=== PATIENT | female | born 1970 | race African-American/Black ===

== ENCOUNTER 2016-06-01 10:10 | Emergency (ER) | payer BC, MEDICAID ==
--- NOTE | 2016-06-01 10:17 | ER Document Report ---
ED Medical Screen (RME) - General Stated Complaint: RIGHT ANKLE AND KNEE PAIN Notes: 46 yo female c/o right ankle and knee pain since yesterday. + prolonged standing yesterday. no trauma no chest pain or shortness of breath. + soft tissue swelling to right ankle - Related Data Allergies/Adverse Reactions: Penicillins Allergy (Verified 06/01/16 10:14)
--- NOTE | 2016-06-01 13:23 | ER Document Report ---
ED Extremity Problem, Lower - General Mode of Arrival: Ambulatory Information source: Patient TRAVEL OUTSIDE OF THE [place] IN LAST 30 DAYS: No - HPI Patient complains to provider of: Pain - right ankle, Swelling - right ankle Location: Ankle - right Occurred: Yesterday Context: Other - see above Associated symptoms: Other - see above - General Chief Complaint: Ankle Pain Stated Complaint: RIGHT ANKLE AND KNEE PAIN Notes: 46 year old female with history of right ankle fracture 1 year ago presents to the ED complaining of swelling and pain to the right ankle that started yesterday after standing for 7.5 hours while doing community service at the [employer]. Patient describes the pain as "throbbing". Patient is on disability secondary to the right ankle injury. Patient denies being on blood thinners or history of ulcers. (CARLEEN STEPHENSON) - Related Data Allergies/Adverse Reactions: Penicillins Allergy (Verified 06/01/16 10:14) Past Medical History - General Information source: Patient - Social History Smoking Status: Never Smoker Chew tobacco use (# tins/day): No Frequency of alcohol use: None Drug Abuse: None Family History: Reviewed & Not Pertinent Patient has suicidal ideation: No Patient has homicidal ideation: No Renal/ Medical History: Denies: Hx Peritoneal Dialysis Musculoskeltal Medical History: Reports Other - Right ankle fracture Review of Systems - Review of Systems Constitutional: No symptoms reported EENT: No symptoms reported Cardiovascular: No symptoms reported Respiratory: No symptoms reported Gastrointestinal: No symptoms reported Genitourinary: No symptoms reported Female Genitourinary: No symptoms reported Musculoskeletal: See HPI, Joint pain - right ankle pain, Ankle swelling - right ankle Skin: No symptoms reported Hematologic/Lymphatic: No symptoms reported Neurological/Psychological: No symptoms reported -: Yes All other systems reviewed and negative Physical Exam - General General appearance: Alert In distress: None - HEENT Head: Normocephalic, Atraumatic Eyes: Normal Extraocular movements intact: Yes Pupils: PERRL - Respiratory Respiratory status: No respiratory distress Breath sounds: Normal - Cardiovascular Rhythm: Regular Heart sounds: Normal auscultation - Abdominal Inspection: Normal Distension: No distension Tenderness: Nontender - Back Back: Normal - Extremities General upper extremity: Normal inspection, Normal ROM General lower extremity: Other - No proximal tib-fib, knee, or hip tenderness. Mild swelling to the right ankle with no bony deformity.. No: Normal inspection - Neurological Neuro grossly intact: Yes Cognition: Normal Orientation: AAOx4 [place] Coma Scale Eye Opening: Spontaneous [place] Coma Scale Verbal: Oriented [place] Coma Scale Motor: Obeys Commands [place] Coma Scale Total: 15 Speech: Normal - Psychological Associated symptoms: Normal affect, Normal mood - Skin Skin Temperature: Warm Skin Moisture: Dry Skin Color: Normal Discharge - Discharge Clinical Impression: Sprain of ankle Condition: Stable Disposition: HOME, SELF-CARE Instructions: Sprained Ankle ([facility]) Additional Instructions: Sprain Your injury is a sprain. A sprain results from stretching or tearing of the ligaments, usually from a twisting injury. The ligaments will require time and protection in order to heal properly. Many sprains are quite disabling and should be taken seriously. The usual initial treatment of sprains is cold packs, elevation, and rest of the injured area. Your physician has assessed the seriousness of your ligament injury, and has outlined a treatment plan. Understand that this treatment may change, depending on how you progress. If a re-examination was recommended, it is important that you follow up as instructed. Call the doctor any time if there is severe pain, numbness, or loss of function in the injured area. follow up with your primary care provider when he get back to [place] return for increasing worsening or new symptoms Prescriptions: Naproxen [Naprosyn 375 Mg Tablet] 375 mg PO DAILY #12 tablet Scribe Documentation - Scribe Written by Dimple:: Dimple Larose, 06/01/2016 1640 acting as scribe for :: Alex
[2016-06-01 13:27] VITALS: BP 148/90
== END 2016-06-01 13:33 | disposition home or self-care (01) ==
LOC: ER 10:10
DX: S93.401A Sprain of unspecified ligament of right ankle, initial encounter (principal); X58.XXXA Exposure to other specified factors, initial encounter; M25.571 Pain in right ankle and joints of right foot; Z87.81 Personal history of (healed) traumatic fracture; Z88.0 Allergy status to penicillin
CPT/HCPCS: 99283